=== PATIENT | female | born 1980 | race Caucasian/White ===

== ENCOUNTER 2018-04-05 06:00 | Inpatient (IN) | payer OTHER ==
[2018-04-05] MEDS ORDERED: OXYTOCIN/RINGERS LACTATE 500 ML IV SCH (08:03)
[2018-04-05] MEDS ORDERED: LR 500 ML IV PRN (08:03)
[2018-04-05] MEDS ORDERED: TERBUTALINE SULFATE 1 MG/ML VIAL ONE (08:08)
[2018-04-05] MEDS ORDERED: LIDOCAINE 1% 300 MG/30 ML SDV ONE (08:08)
[2018-04-05] MEDS ORDERED: OXYTOCIN 10 UNIT/ML VIAL ONE (08:08)
[2018-04-05] MEDS ORDERED: OLIVE OIL 118 ML BTL ONE (08:08)
[2018-04-05] MEDS ORDERED: MISOPROSTOL 200 MCG TAB ONE (08:08)
[2018-04-05] MEDS ORDERED: AMMONIA AROMATIC 1 EACH AMP IH ONE (08:08)
[2018-04-05] MEDS ORDERED: LR 1,000 ML IV PRN (08:48)
[2018-04-05] MEDS ORDERED: OXYTOCIN/RINGERS LACTATE 1,000 ML IV PRN (08:48)
[2018-04-05] MEDS ORDERED: LIDOCAINE 1% 300 MG/30 ML SDV SC PRN (08:48)
[2018-04-05] MEDS ORDERED: EPSOM SALT 454 GM TP PRN (08:48)
[2018-04-05] MEDS ORDERED: IBUPROFEN 600 MG TAB PO PRN (08:48)
[2018-04-05] MEDS ORDERED: MISOPROSTOL 200 MCG TAB PR PRN (08:48)
[2018-04-05] MEDS ORDERED: OLIVE OIL 118 ML BTL MISC PRN (08:48)
[2018-04-05 09:18] LABS: PLATELET COUNT 250 10^3/uL (150-400)
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
--- NOTE | 2018-04-05 13:28 | OBPROG ---
Labor Progress Note Assessment/Plan: Assessment: 37 y/o @ 41 weeks IOL secondary to post dates Plan: I tried to remove the sharma again and it was difficult. Cervix feels to be approximately 3 cm dilated. Will continue to increase pitocin per protocol and I will re check in 2-3 hours. status is reassuring. 04/05/18 13:24 Subjective/Intrapartum Course: 04/05/18 13:21 Pt is beginning to feel stronger contractions. She has been ambulating in the hallway. Objective: 04/05/18 08:15 Patient ABO/Rh AB NEGATIVE 04/05/18 08:15 - SVE Dilation (cm): 3 Effacement (%): 75 Station: -2 Membranes: Intact - Contraction Pattern Assessment Current Contraction Pattern: Regular (Q 2-3 minutes) - FHR Assessment Martinez FHR (bpm): 130 FHR Pattern Variability: Moderate FHR Category: 1 - AP Antepartum Course: 04/05/18 13:23 AMA Rh neg, is documented Rh neg as well Oxytocin Orders Assessment - Pre-Induction/Augmentation Assessment Gestational Age: 41 week(s) and 0 day(s) ICD10 Worksheet Patient Problems: Problems Problem Status Onset Encounter for elective induction of labor Acute - ICD10 Problem Qualifiers (1) Encounter for elective induction of labor
--- NOTE | 2018-04-05 16:12 | OBPROG ---
Labor Progress Note Assessment/Plan: Assessment: 37 y/o @ 41 weeks IOL secondary to post dates Plan: Akins removed without difficulty. AROM clear fluid. Pt will assess contractions and consider pain options as needed. status is reassuring. 04/05/18 16:10 Subjective/Intrapartum Course: 04/05/18 13:21 Pt is beginning to feel stronger contractions. She has been ambulating in the hallway. 04/05/18 16:09 Pt continues to do well, she is feeling more contractions but still able to rest. Some min bleeding when voiding. Objective: 04/05/18 08:15 Patient ABO/Rh AB NEGATIVE 04/05/18 08:15 - SVE Dilation (cm): 4 Effacement (%): 75 Station: -2 Membranes: AROM, Intact Amniotic Fluid Color: Clear - Contraction Pattern Assessment Current Contraction Pattern: Regular (Q 2-3 minutes) - Procedures Non-surgical Procedures: Amniotomy - AP Antepartum Course: 04/05/18 13:23 AMA Rh neg, is documented Rh neg as well Oxytocin Orders Assessment - Pre-Induction/Augmentation Assessment Gestational Age: 41 week(s) and 0 day(s) ICD10 Worksheet Patient Problems: Problems Problem Status Onset Encounter for elective induction of labor Acute - ICD10 Problem Qualifiers (1) Encounter for elective induction of labor
--- NOTE | 2018-04-05 18:22 | OBPROG ---
Labor Progress Note Assessment/Plan: Assessment: 37 y/o @ 41 weeks IOL secondary to post dates Plan: Slow but steady progress. Will continue to dose pitocin per protocol. status reassuring. 04/05/18 16:10 04/05/18 18:21 Subjective/Intrapartum Course: 04/05/18 13:21 Pt is beginning to feel stronger contractions. She has been ambulating in the hallway. 04/05/18 16:09 Pt continues to do well, she is feeling more contractions but still able to rest. Some min bleeding when voiding. 04/05/18 18:20 Pt is beginning to feel stronger contractions but she is still able to ambulate and is not breathing through contractions. Objective: 04/05/18 08:15 Patient ABO/Rh AB NEGATIVE 04/05/18 08:15 - SVE Dilation (cm): 5 Effacement (%): 75 Station: -1 Membranes: AROM, Intact Amniotic Fluid Color: Clear - Contraction Pattern Assessment Current Contraction Pattern: Regular (Q 2-3 minutes) - FHR Assessment Martinez FHR (bpm): 130 FHR Pattern Variability: Moderate FHR Category: 1 - Procedures Non-surgical Procedures: Amniotomy - AP Antepartum Course: 04/05/18 13:23 AMA Rh neg, is documented Rh neg as well Oxytocin Orders Assessment - Pre-Induction/Augmentation Assessment Gestational Age: 41 week(s) and 0 day(s) ICD10 Worksheet Patient Problems: Problems Problem Status Onset Encounter for elective induction of labor Acute - ICD10 Problem Qualifiers (1) Encounter for elective induction of labor
--- NOTE | 2018-04-05 20:30 | OBPROG ---
Labor Progress Note Assessment/Plan: Assessment: 37 y/o @ 41 weeks IOL secondary to post dates Plan: Slow progress, contractions are slowly building. I would like to place an IUPC , but she may want an epidural first. She is going to try to have a BM naturally, but may need help with a suppository. 04/05/18 16:10 04/05/18 18:21 04/05/18 20:31 Subjective/Intrapartum Course: 04/05/18 13:21 Pt is beginning to feel stronger contractions. She has been ambulating in the hallway. 04/05/18 16:09 Pt continues to do well, she is feeling more contractions but still able to rest. Some min bleeding when voiding. 04/05/18 18:20 Pt is beginning to feel stronger contractions but she is still able to ambulate and is not breathing through contractions. 04/05/18 20:25 She is continuing to feel stronger contractions. She is also feeling the urge to have a BM, but not rectal pressure with contractions. Objective: 04/05/18 08:15 Patient ABO/Rh AB NEGATIVE 04/05/18 08:15 - SVE Dilation (cm): 5 Effacement (%): 75 Station: -1 Membranes: AROM, Intact Amniotic Fluid Color: Clear - Contraction Pattern Assessment Current Contraction Pattern: Regular (Q 2-3 minutes) - FHR Assessment Martinez FHR (bpm): 130 FHR Pattern Variability: Moderate FHR Category: 1 - Procedures Non-surgical Procedures: Amniotomy - AP Antepartum Course: 04/05/18 13:23 AMA Rh neg, is documented Rh neg as well Oxytocin Orders Assessment - Pre-Induction/Augmentation Assessment Gestational Age: 41 week(s) and 0 day(s) ICD10 Worksheet Patient Problems: Problems Problem Status Onset Encounter for elective induction of labor Acute - ICD10 Problem Qualifiers (1) Encounter for elective induction of labor
[2018-04-05] MEDS ORDERED: BISACODYL 10 MG SUPP PR PRN (20:36)
[2018-04-05] MEDS ORDERED: fentaNYL 2MCG/ML/BUP 0.1% RTU 100 ML BAG EP ONE ×2 (20:52→21:23)
[2018-04-05] MEDS ORDERED: BUPIVACAINE 0.25% 10 ML SDV ONE ×2 (20:52→21:23)
[2018-04-05] MEDS ORDERED: PHENYLEPHRINE HCL 100 MCG/ML SYR ONE (20:52)
[2018-04-05] MEDS ORDERED: METOCLOPRAMIDE 10 MG/2 ML VIAL IVP PRN (22:06)
[2018-04-05] MEDS ORDERED: ONDANSETRON 4 MG/2 ML VIAL IVP PRN (22:06)
[2018-04-05] MEDS ORDERED: NALOXONE HCL 0.4 MG/ML INJ IVP PRN (22:06)
[2018-04-05] MEDS ORDERED: PHENYLEPHRINE HCL 100 MCG/ML SYR IVP PRN (22:06)
--- NOTE | 2018-04-05 22:06 | PREANESOB ---
Obstetric Pre-Anesthesia Info - General Info Proposed Procedure: RONIT : 1 Para: 0 MINE: 03/29/18 Gestational Age: 41 week(s) and 0 day(s) - Info Status: Full Term Monitors: External FHR Pattern: Reassuring - Labor Status Cervical Dilation per last OB SVE: 5 Station per last OB SVE: -1 Amniotic Fluid Color: Clear Indications for Labor Analgesia: Pain Control Labor Epidural: Proposed Anesthesia Allergies/Adverse Reactions: Allergy/AdvReac Type Severity Reaction Status Date / Time No Known Allergies Allergy Unverified 04/01/18 18:08 Visit Medications: Generic Name Dose Route Start Last Admin Trade Name Freq PRN Reason Stop Dose Admin Bisacodyl 10 mg 04/05/18 20:36 Dulcolax Rectal OR 10/02/18 20:35 DAILY PRN Constipation Oxytocin/Lactated Ringer's 500 mls @ 0 mls/hr 04/05/18 08:03 04/05/18 08:35 Pitocin 30 Units/Lr (Premix) IV 10/02/18 08:02 500 mls CONT SENG Administration Protocol Per Protocol Lactated Ringer's 1,000 mls @ 0 mls/hr 04/05/18 08:48 Lr IV 04/06/18 08:47 PRN PRN SEE PROTOCOL CONDITIONS Protocol Per Protocol Oxytocin/Lactated Ringer's 1,000 mls @ 125 mls/hr 04/05/18 08:48 Pitocin 20 Units/Lr (Premix) IV PRN PRN Post bleeding Ibuprofen 600 mg 04/05/18 08:48 Motrin PO ONCE PRN post , pain Lidocaine HCl 300 mg 04/05/18 08:48 Lidocaine Hcl 1% SC 10/02/18 08:47 ONCE PRN episiotomy Magnesium Sulfate 454 gm 04/05/18 08:48 Epsom Salt TP 10/02/18 08:47 Q1H PRN perineal discomfort Misoprostol 800 - 1,000 mcg 04/05/18 08:48 Cytotec OR ONCE PRN Vaginal Atony/Bleeding [place] Oil 118 ml 04/05/18 08:48 Sweet Oil MISC 10/02/18 08:47 ONCE PRN perineal massage Discontinued Medications Generic Name Dose Route Start Last Admin Trade Name Freq PRN Reason Stop Dose Admin Ammonia (Aromatic Spirit) Confirm 04/05/18 08:08 Ammonia Aromatic Administered 04/05/18 08:09 Dose 1 each IH .STK-MED ONE Bupivacaine HCl Confirm 04/05/18 20:52 Sensorcaine 0.25% Sdv Administered 04/05/18 20:53 Dose 10 ml .ROUTE .STK-MED ONE Bupivacaine HCl Confirm 04/05/18 21:23 Sensorcaine 0.25% Sdv Administered 04/05/18 21:24 Dose 10 ml .ROUTE .STK-MED ONE Fentanyl/Bupivacaine HCl Confirm 04/05/18 20:52 Fentanyl/Bupivacaine/Ns 2 Mcg/Ml 0.1% (Premix Administered 04/05/18 20:53 Dose 100 ml EP .STK-MED ONE Fentanyl/Bupivacaine HCl Confirm 04/05/18 21:23 Fentanyl/Bupivacaine/Ns 2 Mcg/Ml 0.1% (Premix Administered 04/05/18 21:24 Dose 100 ml EP .STK-MED ONE Lactated Ringer's 500 mls @ 500 mls/hr 04/05/18 08:03 04/05/18 08:35 Lr IV 500 mls PRN PRN Administration Maternal Hypotension Lidocaine HCl Confirm 04/05/18 08:08 Lidocaine Hcl 1% Administered 04/05/18 08:09 Dose 300 mg .ROUTE .STK-MED ONE Misoprostol Confirm 04/05/18 08:08 Cytotec Administered 04/05/18 08:09 Dose 1,000 mcg .ROUTE .STK-MED ONE [place] Oil Confirm 04/05/18 08:08 Sweet Oil Administered 04/05/18 08:09 Dose 118 ml .ROUTE .STK-MED ONE Oxytocin Confirm 04/05/18 08:08 Pitocin Administered 04/05/18 08:09 Dose 40 unit .ROUTE .STK-MED ONE Phenylephrine HCl Confirm 04/05/18 20:52 Neosynephrine Administered 04/05/18 20:53 Dose 1,000 mcg .ROUTE .STK-MED ONE Terbutaline Sulfate Confirm 04/05/18 08:08 Brethine Administered 04/05/18 08:09 Dose 1 mg .ROUTE .STK-MED ONE - Anesthesia History Response to Local Anesthetics: Not Applicable Anesthesia & Operative History: No Prior Problems Family Anesthesia History: Not Applicable - Vital Signs Height/Weight (Nursing): Height 157.48 cm Weight 68.492 kg - Focused Exam Neck exam: FROM Mallampati Score: Class 1 Mouth exam: normal dental/mouth exam Pulmonary: no respiratory distress Cardiovascular: regular rate and rhythym Labs: 04/05/18 08:15 Patient ABO/Rh AB NEGATIVE 04/05/18 08:15 - Plan Anesthetic Plan: RONIT Consent Signed and on Chart: Yes Patient/Guardian Understands and Agrees to Plan: Yes Urgent/Emergent Case: Kelly dia completed preop but documented later for safe timely pt care
--- NOTE | 2018-04-05 22:10 | POSTANESTH ---
Post Anesthetic Evaluation Cardiovascular Status: Normal, Stable Respiratory Status: Normal, Stable Level of Consciousness/Mental Status: Can Participate in Eval, Alert and Oriented Pain Control: Adequate, Prn Tx Ordered Nausea/Vomiting Control: Adequate, Prn Tx Ordered Complications Possibly Related to Anesthesia: None Noted
--- NOTE | 2018-04-05 22:28 | OBPROG ---
Labor Progress Note Assessment/Plan: Assessment: 37 y/o @ 41 weeks IOL secondary to post dates Plan: IUPC placed and contractions seem adequate. We placed the sharma and will try peanut ball positioning now. Continue to dose pitocin until adequate. 04/05/18 16:10 04/05/18 18:21 04/05/18 20:31 04/05/18 22:24 Subjective/Intrapartum Course: 04/05/18 13:21 Pt is beginning to feel stronger contractions. She has been ambulating in the hallway. 04/05/18 16:09 Pt continues to do well, she is feeling more contractions but still able to rest. Some min bleeding when voiding. 04/05/18 18:20 Pt is beginning to feel stronger contractions but she is still able to ambulate and is not breathing through contractions. 04/05/18 20:25 She is continuing to feel stronger contractions. She is also feeling the urge to have a BM, but not rectal pressure with contractions. 04/05/18 22:23 Pt is now comfortable with her epidural. Objective: 04/05/18 08:15 Patient ABO/Rh AB NEGATIVE 04/05/18 08:15 - SVE Dilation (cm): 6 Effacement (%): 75 Station: -1 Membranes: AROM, Intact Amniotic Fluid Color: Clear - Contraction Pattern Assessment Current Contraction Pattern: Regular (Q 2-3 minutes) - FHR Assessment Martinez FHR (bpm): 130 FHR Pattern Variability: Moderate FHR Category: 1 - Procedures Non-surgical Procedures: Amniotomy, IUPC - AP Antepartum Course: 04/05/18 13:23 AMA Rh neg, is documented Rh neg as well Oxytocin Orders Assessment - Pre-Induction/Augmentation Assessment Gestational Age: 41 week(s) and 0 day(s) ICD10 Worksheet Patient Problems: Problems Problem Status Onset Encounter for elective induction of labor Acute - ICD10 Problem Qualifiers (1) Encounter for elective induction of labor
[2018-04-05] MEDS ORDERED: LR 500 ML IV SCH (22:30)
--- NOTE | 2018-04-06 00:01 | OBPROG ---
Labor Progress Note Assessment/Plan: Assessment: 37 y/o @ 41 weeks IOL secondary to post dates Plan: IUPC is documenting adequate contractions without significant cervical change or descent. We have tried multiple position changes to try to encourage rotation and descent of the had without success so far. I discussed the possibilities of arrest of dilation despite adequate contractions and the possible need for c section delivery. We will give 2 more hours, as long as baby is doing well. Patient and verbalized understanding. 04/05/18 16:10 04/05/18 18:21 04/05/18 20:31 04/05/18 22:24 04/05/18 23:58 Subjective/Intrapartum Course: 04/05/18 13:21 Pt is beginning to feel stronger contractions. She has been ambulating in the hallway. 04/05/18 16:09 Pt continues to do well, she is feeling more contractions but still able to rest. Some min bleeding when voiding. 04/05/18 18:20 Pt is beginning to feel stronger contractions but she is still able to ambulate and is not breathing through contractions. 04/05/18 20:25 She is continuing to feel stronger contractions. She is also feeling the urge to have a BM, but not rectal pressure with contractions. 04/05/18 22:23 Pt is now comfortable with her epidural. 04/05/18 23:56 Pt remains comfortable with her epidural. They have tried many different positions. Side lying release bilaterally, peanut ball and now high fowlers. Objective: 04/05/18 08:15 Patient ABO/Rh AB NEGATIVE 04/05/18 08:15 - SVE Dilation (cm): 6 Effacement (%): 75 Station: -1 Membranes: AROM, Intact Amniotic Fluid Color: Clear - Contraction Pattern Assessment Current Contraction Pattern: Regular (Q 2-3 minutes, adequate mU) - FHR Assessment Martinez FHR (bpm): 130 FHR Pattern Variability: Moderate FHR Category: 1 - Procedures Non-surgical Procedures: Amniotomy, IUPC - AP Antepartum Course: 04/05/18 13:23 AMA Rh neg, is documented Rh neg as well Oxytocin Orders Assessment - Pre-Induction/Augmentation Assessment Gestational Age: 41 week(s) and 0 day(s) ICD10 Worksheet Patient Problems: Problems Problem Status Onset Encounter for elective induction of labor Acute - ICD10 Problem Qualifiers (1) Encounter for elective induction of labor
[2018-04-06] MEDS ORDERED: ceFAZolin 2 GM/DEXTROSE 100 ML IV ONE (02:47)
[2018-04-06] MEDS ORDERED: AZITHROMYCIN IV 500 MG in NS 250 ML IV ONE (02:48)
--- NOTE | 2018-04-06 02:52 | OBPROG ---
Labor Progress Note Assessment/Plan: Assessment: 37 y/o @ 41 weeks IOL secondary to post dates Plan: She now has not made significant cervical change in > 6 hours. Her contractions are adequate and I feel we have given a more than adequate trial. We will proceed with c section for delivery now for arrest of dilation. Pt consented, I answered all questions from the patient and her . 04/05/18 16:10 04/05/18 18:21 04/05/18 20:31 04/05/18 22:24 04/05/18 23:58 04/06/18 02:50 Subjective/Intrapartum Course: 04/05/18 13:21 Pt is beginning to feel stronger contractions. She has been ambulating in the hallway. 04/05/18 16:09 Pt continues to do well, she is feeling more contractions but still able to rest. Some min bleeding when voiding. 04/05/18 18:20 Pt is beginning to feel stronger contractions but she is still able to ambulate and is not breathing through contractions. 04/05/18 20:25 She is continuing to feel stronger contractions. She is also feeling the urge to have a BM, but not rectal pressure with contractions. 04/05/18 22:23 Pt is now comfortable with her epidural. 04/05/18 23:56 Pt remains comfortable with her epidural. They have tried many different positions. Side lying release bilaterally, peanut ball and now high fowlers. 04/06/18 02:49 Pt remains overall comfortable, but she is beginning to feel some contractions. Objective: 04/05/18 08:15 Patient ABO/Rh AB NEGATIVE 04/05/18 08:15 Temp Pulse Resp BP Pulse Ox 36.5 C 64 16 130/65 H 100 04/06/18 02:35 04/06/18 02:35 04/06/18 02:35 04/06/18 02:35 04/06/18 02:35 - SVE Dilation (cm): 6 Effacement (%): 75 Station: -2 Membranes: AROM, Intact Amniotic Fluid Color: Clear - Contraction Pattern Assessment Current Contraction Pattern: Regular (Q 2-3 minutes, adequate mU) - Procedures Non-surgical Procedures: Amniotomy, IUPC - AP Antepartum Course: 04/05/18 13:23 AMA Rh neg, is documented Rh neg as well Oxytocin Orders Assessment - Pre-Induction/Augmentation Assessment Gestational Age: 41 week(s) and 0 day(s) ICD10 Worksheet Patient Problems: Problems Problem Status Onset Encounter for elective induction of labor Acute - ICD10 Problem Qualifiers (1) Encounter for elective induction of labor
[2018-04-06] MEDS ORDERED: fentaNYL 100 MCG/2 ML INJ ONE (03:00)
[2018-04-06] MEDS ORDERED: morphINE PF 5 MG/10 ML INJ ONE (03:01)
[2018-04-06] MEDS ORDERED: CITRIC ACID/SODIUM CITRATE 30 ML UDCUP ONE (03:18)
--- NOTE | 2018-04-06 03:22 | PREANESOB ---
Obstetric Pre-Anesthesia Info - General Info Proposed Procedure: C/S : 1 Para: 0 MINE: 03/29/18 Gestational Age: 41 week(s) and 0 day(s) - Info Status: Full Term Monitors: External FHR Pattern: Reassuring - Labor Status Cervical Dilation per last OB SVE: 6 Station per last OB SVE: -2 Amniotic Fluid Color: Clear PIH: No Magnesium Sulfate in Use: No Section History: Primary Indications for Current Section: Arrest of Dilation Labor Epidural: Yes Anesthesia Allergies/Adverse Reactions: Allergy/AdvReac Type Severity Reaction Status Date / Time No Known Allergies Allergy Unverified 04/01/18 18:08 Visit Medications: Generic Name Dose Route Start Last Admin Trade Name Freq PRN Reason Stop Dose Admin Bisacodyl 10 mg 04/05/18 20:36 Dulcolax Rectal RI 10/02/18 20:35 DAILY PRN Constipation Diphenhydramine HCl 25 - 50 mg 04/05/18 22:06 Benadryl Injection IVP 10/02/18 22:05 Q6HRS PRN Itching Ephedrine Sulfate 10 mg 04/05/18 22:06 Ephedrine Sulfate IV 10/02/18 22:05 .Q2M PRN Hypotension Oxytocin/Lactated Ringer's 500 mls @ 0 mls/hr 04/05/18 08:03 04/05/18 08:35 Pitocin 30 Units/Lr (Premix) IV 10/02/18 08:02 500 mls CONT SENG Administration Protocol Per Protocol Lactated Ringer's 1,000 mls @ 0 mls/hr 04/05/18 08:48 Lr IV 04/06/18 08:47 PRN PRN SEE PROTOCOL CONDITIONS Protocol Per Protocol Oxytocin/Lactated Ringer's 1,000 mls @ 125 mls/hr 04/05/18 08:48 Pitocin 20 Units/Lr (Premix) IV PRN PRN Post bleeding Lactated Ringer's 500 mls @ 0 mls/hr 04/05/18 22:30 04/05/18 23:04 Lr IV 10/02/18 22:29 500 mls CONT SENG Administration As Directed Azithromycin 500 mg/ Sodium 255 mls @ 255 mls/hr 04/06/18 02:48 04/06/18 03: 14 Chloride IV 04/06/18 03:47 255 mls ONCE ONE Administration Protocol Ibuprofen 600 mg 04/05/18 08:48 Motrin PO ONCE PRN post , pain Lidocaine HCl 300 mg 04/05/18 08:48 Lidocaine Hcl 1% SC 10/02/18 08:47 ONCE PRN episiotomy Magnesium Sulfate 454 gm 04/05/18 08:48 Epsom Salt TP 10/02/18 08:47 Q1H PRN perineal discomfort Metoclopramide HCl 20 mg 04/05/18 22:06 Reglan Injection IVP 10/02/18 22:05 Q6HRS PRN Nausea/Vomiting, Can't Take PO Misoprostol 800 - 1,000 mcg 04/05/18 08:48 Cytotec RI ONCE PRN Vaginal Atony/Bleeding Naloxone HCl 0.4 mg 04/05/18 22:06 Narcan IVP 10/02/18 22:05 PRN PRN Respiratory depression Springer Oil 118 ml 04/05/18 08:48 Sweet Oil MISC 10/02/18 08:47 ONCE PRN perineal massage Ondansetron HCl 4 mg 04/05/18 22:06 Zofran IVP 04/06/18 22:05 Q4HRS PRN Nausea/Vomiting, Can't Take PO Phenylephrine HCl 100 mcg 04/05/18 22:06 Neosynephrine IVP 10/02/18 22:05 .Q2M PRN Hypotension Discontinued Medications Generic Name Dose Route Start Last Admin Trade Name Freq PRN Reason Stop Dose Admin Ammonia (Aromatic Spirit) Confirm 04/05/18 08:08 Ammonia Aromatic Administered 04/05/18 08:09 Dose 1 each IH .STK-MED ONE Bupivacaine HCl Confirm 04/05/18 20:52 Sensorcaine 0.25% Sdv Administered 04/05/18 20:53 Dose 10 ml .ROUTE .STK-MED ONE Bupivacaine HCl Confirm 04/05/18 21:23 Sensorcaine 0.25% Sdv Administered 04/05/18 21:24 Dose 10 ml .ROUTE .STK-MED ONE Citric Acid/Sodium Citrate Confirm 04/06/18 03:18 Bicitra Administered 04/06/18 03:19 Dose 30 ml .ROUTE .STK-MED ONE Fentanyl Confirm 04/06/18 03:00 Sublimaze Administered 04/06/18 03:01 Dose 100 mcg .ROUTE .STK-MED ONE Fentanyl/Bupivacaine HCl Confirm 04/05/18 20:52 Fentanyl/Bupivacaine/Ns 2 Mcg/Ml 0.1% (Premix Administered 04/05/18 20:53 Dose 100 ml EP .STK-MED ONE Fentanyl/Bupivacaine HCl Confirm 04/05/18 21:23 Fentanyl/Bupivacaine/Ns 2 Mcg/Ml 0.1% (Premix Administered 04/05/18 21:24 Dose 100 ml EP .STK-MED ONE Lactated Ringer's 500 mls @ 500 mls/hr 04/05/18 08:03 04/05/18 08:35 Lr IV 500 mls PRN PRN Administration Maternal Hypotension Cefazolin Sodium/Dextrose 100 mls @ 200 mls/hr 04/06/18 02:47 04/06/18 02:54 Ancef IV 04/06/18 03:16 100 mls ONCALL ONE Administration Protocol Lidocaine HCl Confirm 04/05/18 08:08 Lidocaine Hcl 1% Administered 04/05/18 08:09 Dose 300 mg .ROUTE .STK-MED ONE Misoprostol Confirm 04/05/18 08:08 Cytotec Administered 04/05/18 08:09 Dose 1,000 mcg .ROUTE .STK-MED ONE Morphine Sulfate Confirm 04/06/18 03:01 Morphine Pf 5 Mg/10 Ml Administered 04/06/18 03:02 Dose 5 mg .ROUTE .STK-MED ONE Springer Oil Confirm 04/05/18 08:08 Sweet Oil Administered 04/05/18 08:09 Dose 118 ml .ROUTE .STK-MED ONE Oxytocin Confirm 04/05/18 08:08 Pitocin Administered 04/05/18 08:09 Dose 40 unit .ROUTE .STK-MED ONE Phenylephrine HCl Confirm 04/05/18 20:52 Neosynephrine Administered 04/05/18 20:53 Dose 1,000 mcg .ROUTE .STK-MED ONE Terbutaline Sulfate Confirm 04/05/18 08:08 Brethine Administered 04/05/18 08:09 Dose 1 mg .ROUTE .STK-MED ONE - Anesthesia History Response to Local Anesthetics: Not Applicable Anesthesia & Operative History: No Prior Problems Family Anesthesia History: Not Applicable - Vital Signs Latest Vital Signs (Nursing): Temp Pulse Resp BP Pulse Ox 36.5 C 64 16 130/65 H 100 04/06/18 02:35 04/06/18 02:35 04/06/18 02:35 04/06/18 02:35 04/06/18 02:35 Height/Weight (Nursing): Height 157.48 cm Weight 68.492 kg - Focused Exam Neck exam: FROM Mallampati Score: Class 1 Mouth exam: normal dental/mouth exam Pulmonary: no respiratory distress Cardiovascular: regular rate and rhythym Labs: 04/05/18 08:15 Patient ABO/Rh AB NEGATIVE 04/05/18 08:15 - Plan Anesthetic Plan: RONIT convert for C/S Consent Signed and on Chart: Yes Patient/Guardian Understands and Agrees to Plan: Yes Urgent/Emergent Case: Kelly dia completed preop but documented later for safe timely pt care
[2018-04-06] MEDS ORDERED: METHYLERGONOVINE MAL 0.2 MG/ML INJ ONE (04:00)
[2018-04-06] MEDS ORDERED: PHENYLEPHRINE HCL 100 MCG/ML SYR IVP PRN (04:15)
[2018-04-06] MEDS ORDERED: NALOXONE HCL 0.4 MG/ML INJ IVP PRN (04:15)
[2018-04-06] MEDS ORDERED: ONDANSETRON 4 MG/2 ML VIAL IVP PRN (04:15)
[2018-04-06] MEDS ORDERED: METOCLOPRAMIDE 10 MG/2 ML VIAL IVP PRN (04:15)
[2018-04-06] MEDS ORDERED: OXYTOCIN 100 UNITS/10 ML VIAL ONE (04:26)
[2018-04-06] MEDS ORDERED: ONDANSETRON 4 MG/2 ML VIAL ONE (04:26)
[2018-04-06] MEDS ORDERED: PHENYLEPHRINE HCL 100 MCG/ML SYR ONE (04:26)
[2018-04-06] MEDS ORDERED: PROMETHAZINE HCL 25 MG/ML INJ IVP PRN ×2 (04:40→12:44)
[2018-04-06] MEDS ORDERED: BISACODYL 10 MG SUPP PR PRN (04:40)
[2018-04-06] MEDS ORDERED: POLYETHYLENE GLYCOL 3350 17 GM PKT PO PRN (04:40)
[2018-04-06] MEDS ORDERED: MAGNESIUM HYDROXIDE 30 ML UDCUP PO PRN (04:40)
[2018-04-06] MEDS ORDERED: LACTULOSE 20 GM/30 ML UDCUP PO PRN (04:40)
--- NOTE | 2018-04-06 04:40 | OBDEL ---
Info Type: Primary Presentation at Delivery: Vertex L&D Analgesia/Anesthesia Type: Epidural GBS+: No Intrapartum Medications: Generic Name Dose Route Start Last Admin Trade Name Freq PRN Reason Stop Dose Admin Oxytocin/Lactated Ringer's 500 mls @ 0 mls/hr 04/05/18 08:03 04/05/18 08:35 Pitocin 30 Units/Lr (Premix) IV 10/02/18 08:02 500 mls CONT SENG Administration Protocol Per Protocol Lactated Ringer's 500 mls @ 0 mls/hr 04/05/18 22:30 04/05/18 23:04 Lr IV 10/02/18 22:29 500 mls CONT SENG Administration As Directed Discontinued Medications Generic Name Dose Route Start Last Admin Trade Name Lashonda PRN Reason Stop Dose Admin Lactated Ringer's 500 mls @ 500 mls/hr 04/05/18 08:03 04/05/18 08:35 Lr IV 500 mls PRN PRN Administration Maternal Hypotension Cefazolin Sodium/Dextrose 100 mls @ 200 mls/hr 04/06/18 02:47 04/06/18 02:54 Ancef IV 04/06/18 03:16 100 mls ONCALL ONE Administration Protocol Azithromycin 500 mg/ Sodium 255 mls @ 255 mls/hr 04/06/18 02:48 04/06/18 03: 14 Chloride IV 04/06/18 03:47 255 mls ONCE ONE Administration Protocol - Infant Care Provider Digital Media Sales Consultant/POLITICAL ANALYST: Kelin Gunter - Hospital Course Intrapartum: 04/05/18 13:21 Pt is beginning to feel stronger contractions. She has been ambulating in the hallway. 04/05/18 16:09 Pt continues to do well, she is feeling more contractions but still able to rest. Some min bleeding when voiding. 04/05/18 18:20 Pt is beginning to feel stronger contractions but she is still able to ambulate and is not breathing through contractions. 04/05/18 20:25 She is continuing to feel stronger contractions. She is also feeling the urge to have a BM, but not rectal pressure with contractions. 04/05/18 22:23 Pt is now comfortable with her epidural. 04/05/18 23:56 Pt remains comfortable with her epidural. They have tried many different positions. Side lying release bilaterally, peanut ball and now high fowlers. 04/06/18 02:49 Pt remains overall comfortable, but she is beginning to feel some contractions. Indications for Delivery: Postterm Unfavorable Cervix Vaginal Delivery - Labor and Delivery Amniotic Fluid Color: Clear Non-surgical Procedures: Amniotomy, IUPC Operative Report - Delivery Pre-op Diagnoses: IUP @ 41 weeks, arrest of dilation, failed IOL Post-op Diagnoses: same History of Prior Section: No Number of Prior Sections: 0 Nulliparous Prior to Delivery: No Indications for Current Section: Arrest of Dilation Procedure: Unscheduled Surgeon: Cinthia Hamilton Pain Management Nurse Practitioner: Nancy Mancilla Anesthesiologist: Jared Lara Complications: None Findings: uterus, tubes and ovaries IV Fluid (ml): 1,100 EBL: 800 [place] Data MINE: 03/29/18 Gestational Age: 41 week(s) and 1 day(s) [place] Delivery Date: 04/06/18 Delivery Time: 03:57 Sex of : Male [place] Weight (gm): 3550 g Score (1 Min): 9 Score (5 Min): 9 ICD10 Worksheet Patient Problems: Problems Problem Status Onset Delivery by section of full-term Acute Encounter for elective induction of labor Acute - ICD10 Problem Qualifiers (1) Encounter for elective induction of labor (2) Delivery by section of full-term
[2018-04-06] MEDS ORDERED: oxyCODONE IR 5 MG TAB PO PRN (04:42)
[2018-04-06] MEDS: KETOROLAC 30 MG/1 ML SDV IVP SCH ×3 (05:53→18:18)
--- NOTE | 2018-04-06 09:32 | GOP ---
[f rep st] OPERATIVE REPORT DATE OF OPERATION: 04/06/2018 SURGEON: Cinthia Hamilton MD CERAMIC COATER MACHINE: Teresa Mancilla, Certified Nurse Transportation Sales Consultant. ANESTHESIA: Epidural anesthesia. ANESTHESIOLOGIST: Dr. Lara PREOPERATIVE DIAGNOSIS: Intrauterine at 41 weeks gestation for postdates induction of labor, arrest of dilation and failed induction of labor. POSTOPERATIVE DIAGNOSIS: Intrauterine at 41 weeks gestation for postdates induction of labor, arrest of dilation and failed induction of labor. PROCEDURE PERFORMED: Repeat lower transverse section. FINDINGS: Viable male, Apgars of 9 and 9, weight of 3550 g. ESTIMATED BLOOD LOSS: 800 cc. INDICATIONS: The patient is a 37-year-old, 1, para 0, who presented for induction of labor at 41 and 0/7 weeks gestation. She had a Akins catheter placed the night before. She was started on Pitocin which was increased per protocol. She received an epidural. She had AROM for clear fluid and an IUPC was placed. The patient had over 6 hours of documented adequate labor contractions without dilation past 5-6 cm and 75% effaced, -1 station. Diagnosis of arrest of dilation was made. The patient was consented for section. She understood the risks and benefits the risks including bleeding, infection, damage to organs, uterus, tubes, ovaries, bowel, bladder, nerves, blood vessels, ureters, need for additional procedures, injury to the fetus, need for blood transfusion, or hysterectomy. She understood these risks and benefits and agreed to proceed. DESCRIPTION OF PROCEDURE: Patient was taken to the operating room where her epidural was dosed and found to be adequate. She was prepped and draped in the dorsal supine position with a leftward tilt, and a Akins catheter had previously been placed in her bladder. After adequate anesthesia was assured and a WHO time-out was performed, a transverse skin incision was made with a scalpel and the incision was carried down to the underlying layer of fascia with the Bovie. The fascia was incised in midline. Fascial incision was extended laterally with Crawford scissors. The superior aspect of the fascial incision was grasped with a Delphine clamp, elevated, and the rectus muscles were dissected off sharply. Inferior aspect of the fascial incision was grasped with a Delphine clamp and the rectus muscles were dissected off sharply. Rectus muscles were in midline. Peritoneum was entered sharply. Peritoneal incision was extended superiorly and inferiorly with good visualization of the bladder. Bladder blade was inserted. Vesicouterine peritoneum was grasped with pickups, entered sharply with Metzenbaum scissors. The incision was extended laterally, and bladder flap was created digitally. Bladder blade was reinserted. The uterus was incised with a knife. There was clear amniotic fluid upon entry to the uterine cavity. The incision was extended laterally with bandage scissors. The was delivered atraumatically. We waited 1 minute for delayed cord clamping. The infant was vigorous on the abdomen. The cord was clamped and cut. The was handed off to the waiting nurse practitioner. Cord bloods were sent. The placenta was removed manually. Uterus was exteriorized, cleared of all clots and debris. Uterine incision was repaired with 0 Vicryl in a running locked fashion. Second imbricating layer of suture was performed with 0 Vicryl and good hemostasis was assured. Uterus was returned to the abdomen. Gutters were cleared of all clots and debris. Reinspection of the uterine incision again assured hemostasis. The rectus muscles were approximated with 2-0 Vicryl in inverted mattress fashion. The fascia was closed with #1 Vicryl in a running fashion. Subcuticular layers were closed with 2-0 Vicryl. The skin was closed with 4-0 Monocryl. The patient tolerated the procedure well. Sponge, lap, needle, and instrument counts were correct x3. Patient went to the recovery room in good condition. IV FLUIDS: 1100. URINE OUTPUT: 600. /[id number]/MODL MTDD
[2018-04-06] MEDS: IBUPROFEN 600 MG TAB PO SCH ×3 (11:04→23:13)
[2018-04-06] MEDS: ACETAMINOPHEN 325 MG TAB PO SCH ×3 (11:04→23:11)
[2018-04-06] MEDS: SENNOSIDES/DOCUSATE SODIUM TAB PO SCH (11:37)
--- NOTE | 2018-04-06 12:13 | OBPP ---
Progress Note Assessment/Plan: Assessment: POD 1/2 s/p primary c/s for arrest of dilation anemic on admit Plan: Routine care, iron 04/06/18 12:09 04/06/18 12:13 Subjective/ Course: 04/06/18 12:10 Pt doing ok - just tolerated some crackers. had N/V after crackers earlier - christie sips. Baby has latched several times. bleeding is light. Good UOP, pain is minimal - 3/10. Not dizzy - feels pressure in abd when vomiting. Objective: 04/05/18 08:15 Patient ABO/Rh AB NEGATIVE 04/05/18 08:15 Temp Pulse Resp BP Pulse Ox 36.5 C 64 19 108/79 94 04/06/18 02:35 04/06/18 02:35 04/06/18 05:35 04/06/18 04:39 04/06/18 05:35 Uterine Position/Fundal Height: Umbilicus -1 Uterine Tone: Firm Physical Exam - Physical Exam Abdomen: non-tender (minimal tenderness), soft, dressing (CDI, minimal lochia) Extremities: non-tender, pedal edema (none) Skin: normal color, warm/dry Neuro/Psych: alert, normal mood/affect
[2018-04-07] MEDS: SENNOSIDES/DOCUSATE SODIUM TAB PO SCH ×3 (00:58→22:32)
[2018-04-07] MEDS: KETOROLAC 30 MG/1 ML SDV IVP SCH (01:14)
[2018-04-07] MEDS: ACETAMINOPHEN 325 MG TAB PO SCH ×4 (03:20→22:32)
[2018-04-07] MEDS: IBUPROFEN 600 MG TAB PO SCH ×4 (05:29→22:32)
--- NOTE | 2018-04-07 09:24 | PDPAINCON ---
Pain Management Consultation Patient referred by : Alfonso - Subjective Pain is: under control Side effects include: itchiness (mild, improved since yesterday), nausea (mild, improved since yesterday, tolerating PO) - Objective Technique: continuous epidural (epidural morphine for C/S) Catheter site: clean, dry, intact, no erythema/edema/exudate Sensory and motor exam: block has resolved, no apparent ill effects Vital signs: stable - Assessment/Plan Assessment/Plan: pain well-controlled, continue current mgmt (POD 1 s/p C/S using RONIT with epidural morphine for post-op analgesia. Patient reports having had nausea and pruritis yesterday, which were manageable and have improved. She has no complaints at this time. No apparent adverse effects.)
[2018-04-07] MEDS: FERRO-SEQUELS 65 MG TAB.ER PO SCH ×2 (10:28→22:31)
--- NOTE | 2018-04-07 12:00 | OBPP ---
Progress Note Assessment/Plan: Assessment: 37 y/o POD #1 s/p LTCS secondary to arrest of dilation Plan: Pt is significantly anemic. I added Ferous sequels BID today. She is working on reg diet and PO pain meds. Breast feeding going well, continued support with . Ambulate and shower with assistance today. Added abdominal binder. 04/05/18 16:10 04/05/18 18:21 04/05/18 20:31 04/05/18 22:24 04/05/18 23:58 04/06/18 02:50 04/07/18 11:58 Subjective/ Course: 04/06/18 12:10 Pt doing ok - just tolerated some crackers. had N/V after crackers earlier - christie sips. Baby has latched several times. bleeding is light. Good UOP, pain is minimal - 3/10. Not dizzy - feels pressure in abd when vomiting. 04/07/18 11:56 Pt is doing well this am. She is tolerating reg diet and has just switched to PO pain meds. Breast feeding is going well, baby has a good latch. She just had her catheter removed and will get up to void and may shower later today. Objective: 04/07/18 01:30 Patient ABO/Rh AB NEGATIVE 04/05/18 08:15 Temp Pulse Resp BP Pulse Ox 37.3 C 68 16 87/57 L 93 04/07/18 08:00 04/07/18 08:00 04/07/18 08:00 04/07/18 08:00 04/07/18 08:00 Uterine Position/Fundal Height: Umbilicus -2 Uterine Tone: Firm Physical Exam - Physical Exam General Appearance: alert, no apparent distress Neck: non-tender, full range of motion, supple Respiratory: chest non-tender, lungs clear, normal breath sounds Cardiac/Chest: regular rate, rhythm Abdomen: normal bowel sounds, incision (c/d/i) Extremities: swelling (no), Judi's sign (neg)
[2018-04-08] MEDS: ACETAMINOPHEN 325 MG TAB PO SCH ×4 (04:32→22:36)
[2018-04-08] MEDS: IBUPROFEN 600 MG TAB PO SCH ×4 (04:32→22:36)
[2018-04-08] MEDS: FERRO-SEQUELS 65 MG TAB.ER PO SCH ×3 (10:03→20:22)
[2018-04-08] MEDS: SENNOSIDES/DOCUSATE SODIUM TAB PO SCH ×2 (10:03→20:22)
--- NOTE | 2018-04-08 10:44 | OBPP ---
Progress Note Assessment/Plan: Assessment: pod# 2 s/p PLTCS for arest of dilations - routine post care breast feeding - baby being supplemented for weight loss anemia - iron rh negative (FOB rh neg)/ rubella immune Plan: 04/08/18 10:43 04/08/18 10:44 Subjective/ Course: 04/06/18 12:10 Pt doing ok - just tolerated some crackers. had N/V after crackers earlier - christie sips. Baby has latched several times. bleeding is light. Good UOP, pain is minimal - 3/10. Not dizzy - feels pressure in abd when vomiting. 04/07/18 11:56 Pt is doing well this am. She is tolerating reg diet and has just switched to PO pain meds. Breast feeding is going well, baby has a good latch. She just had her catheter removed and will get up to void and may shower later today. 04/08/18 10:45 patient is doing well. pain is well controlled. normal lochia. denies headache and changes in vision. ambulating. passing gas. denies headache and changes in vision. working on breast feeding. baby being supplemented due to weight loss more than 10%. Objective: 04/07/18 01:30 Patient ABO/Rh AB NEGATIVE 04/05/18 08:15 Temp Pulse Resp BP Pulse Ox 36.7 C 66 16 104/63 95 04/08/18 09:20 04/08/18 09:20 04/08/18 09:20 04/08/18 09:20 04/08/18 09:20 Physical Exam - Physical Exam Neck: non-tender, full range of motion, supple Respiratory: chest non-tender, lungs clear, normal breath sounds Cardiac/Chest: normal peripheral pulses, regular rate, rhythm Abdomen: normal bowel sounds, non-tender, other (fundus frim and non tender) Extremities: normal range of motion, non-tender, normal inspection, normal capillary refill Skin: normal color, warm/dry, other (incicison clean dry and intact) Neuro/Psych: no motor/sensory deficits, alert, normal mood/affect, oriented x 3
[2018-04-08] MEDS: SIMETHICONE 80 MG TAB CHEW PO PRN ×2 (16:39→20:22)
[2018-04-09] MEDS: SIMETHICONE 80 MG TAB CHEW PO PRN (04:10)
[2018-04-09] MEDS: IBUPROFEN 600 MG TAB PO SCH ×2 (04:10→11:16)
[2018-04-09] MEDS: ACETAMINOPHEN 325 MG TAB PO SCH ×3 (04:10→16:35)
[2018-04-09 09:17] VITALS: BP 132/79
[2018-04-09] MEDS: SENNOSIDES/DOCUSATE SODIUM TAB PO SCH (11:16)
[2018-04-09] MEDS: FERRO-SEQUELS 65 MG TAB.ER PO SCH (11:16)
--- NOTE | 2018-04-09 11:41 | OBPP ---
Progress Note Assessment/Plan: Assessment: pod#3 s/p PLTCS for arest of dilation - routine post care breast feeding - baby being supplemented for weight loss anemia - iron rh negative (FOB rh neg)/ rubella immune home today Subjective/ Course: 04/06/18 12:10 Pt doing ok - just tolerated some crackers. had N/V after crackers earlier - christie sips. Baby has latched several times. bleeding is light. Good UOP, pain is minimal - 3/10. Not dizzy - feels pressure in abd when vomiting. 04/07/18 11:56 Pt is doing well this am. She is tolerating reg diet and has just switched to PO pain meds. Breast feeding is going well, baby has a good latch. She just had her catheter removed and will get up to void and may shower later today. 04/08/18 10:45 patient is doing well. pain is well controlled. normal lochia. denies headache and changes in vision. ambulating. passing gas. denies headache and changes in vision. working on breast feeding. baby being supplemented due to weight loss more than 10%. 04/09/18 12:02 Doing pretty great - BF went better last night, everybody got more sleep. Ready for home. She did have BM as well. Pain controlled w/o narcotics. Objective: 04/07/18 01:30 Patient ABO/Rh AB NEGATIVE 04/05/18 08:15 Temp Pulse Resp BP Pulse Ox 35.9 C L 66 16 132/79 H 98 04/09/18 08:00 04/09/18 08:00 04/09/18 08:00 04/09/18 08:00 04/09/18 08:00 Physical Exam - Physical Exam Abdomen: incision (CDI with steristrips, no s/sx of infection)
--- NOTE | 2018-04-09 12:04 | OBGCSDC ---
General Delivery Information - General Info : 1 Para: 1 Abortions: 0 Type: Primary L&D Analgesia/Anesthesia Type: Epidural, Spinal Admission Date: 04/05/18 Labs: Patient ABO/Rh AB NEGATIVE 04/05/18 08:15 Hct 24.6 % (38.0-47.0) L 04/07/18 01:30 - Hospital Course Antepartum: 04/05/18 13:23 AMA Rh neg, is documented Rh neg as well Intrapartum: 04/05/18 13:21 Pt is beginning to feel stronger contractions. She has been ambulating in the hallway. 04/05/18 16:09 Pt continues to do well, she is feeling more contractions but still able to rest. Some min bleeding when voiding. 04/05/18 18:20 Pt is beginning to feel stronger contractions but she is still able to ambulate and is not breathing through contractions. 04/05/18 20:25 She is continuing to feel stronger contractions. She is also feeling the urge to have a BM, but not rectal pressure with contractions. 04/05/18 22:23 Pt is now comfortable with her epidural. 04/05/18 23:56 Pt remains comfortable with her epidural. They have tried many different positions. Side lying release bilaterally, peanut ball and now high fowlers. 04/06/18 02:49 Pt remains overall comfortable, but she is beginning to feel some contractions. : 04/06/18 12:10 Pt doing ok - just tolerated some crackers. had N/V after crackers earlier - christie sips. Baby has latched several times. bleeding is light. Good UOP, pain is minimal - 3/10. Not dizzy - feels pressure in abd when vomiting. 04/07/18 11:56 Pt is doing well this am. She is tolerating reg diet and has just switched to PO pain meds. Breast feeding is going well, baby has a good latch. She just had her catheter removed and will get up to void and may shower later today. 04/08/18 10:45 patient is doing well. pain is well controlled. normal lochia. denies headache and changes in vision. ambulating. passing gas. denies headache and changes in vision. working on breast feeding. baby being supplemented due to weight loss more than 10%. 04/09/18 12:02 Doing pretty great - BF went better last night, everybody got more sleep. Ready for home. She did have BM as well. Pain controlled w/o narcotics. Vaginal - Diagnosis Amniotic Fluid Color: Clear - Procedures Non-surgical Procedures: Amniotomy, IUPC - Delivery Providers Surgeon: Cinthia Hamilton Oil Rigger: Nancy Mancilla Anesthesiologist: Jared Lara - Delivery Number of Prior Sections: 0 Indications for Current Section: Arrest of Dilation Non-surgical Procedures: Amniotomy, IUPC Surgical Procedures: Unscheduled Intra-op Complications: None EBL: 800 [place] Data MINE: 03/29/18 Gestational Age: 41 week(s) and 4 day(s) [place] Delivery Date: 04/06/18 Delivery Time: 03:57 Sex of : Male Weight (gm): 3515.341 g Score (1 Min): 9 Score (5 Min): 9 Discharge Information - Discharge Information Condition: Good Instruction/Follow Up: See Instruction Sheet, Two Weeks, Four Weeks, Six Weeks ( F/u with our office at 2 wks (incision check), 4 wks (mood check), and 6 wks ( routine PP visit))
== END 2018-04-09 16:00 | disposition home or self-care (01) | DRG 788 ==
LOC: FLD 07:39 → FOB 04-06 07:18
PROVIDERS: ADMIT Obstetrics & Gynecology; ATTEND Obstetrics & Gynecology
PROC: 10D00Z1 Extraction of Products of Conception, Low, Open Approach (ICD-10-PCS; principal; 2018-04-06)
PROC: 3E033VJ Introduction of Other Hormone into Peripheral Vein, Percutaneous Approach (ICD-10-PCS; principal; 2018-04-06)
PROC: 10907ZC Drainage of Amniotic Fluid, Therapeutic from Products of Conception, Via Natural or Artificial Opening (ICD-10-PCS; principal; 2018-04-06)
DX: O62.0 Primary inadequate contractions (principal); O48.0 Post-term pregnancy; Z37.0 Single live birth; Z3A.41 41 weeks gestation of pregnancy; O61.8 Other failed induction of labor
CPT/HCPCS: J0456; J0690; J1885; J2210; J2274; J2370; J2405; J2550; J2590; J3010; J3105